=== PATIENT | female | born 1990 | race African-American/Black ===

== ENCOUNTER 2021-03-21 15:40 | Observation (INO) | payer MEDICAID, OTHER ==
[~2021-03-21] VITALS: Ht 165.1 cm; Wt 142.9 kg
[2021-03-21] MEDS ORDERED: PREN1COM12 MT (19:54)
[2021-03-21] MEDS ORDERED: METF-416 PO (19:56)
[2021-03-21] MEDS ORDERED: METF-416 MT (19:56)
== END 2021-03-21 20:45 | disposition home or self-care (01) ==
LOC: 8 EST LDRP 15:40
PROVIDERS: ADMIT Specialist; ATTEND Specialist
DX: O26.893 Other specified pregnancy related conditions, third trimester (principal); R10.30 Lower abdominal pain, unspecified; Z3A.36 36 weeks gestation of pregnancy
CPT/HCPCS: 59025; 76815; 76818; G0378; 99281